=== PATIENT | female | born 1935 | race Caucasian/White ===

== ENCOUNTER 2017-07-01 19:34 | Emergency (ER) | payer OTHER ==
--- OUTSIDE RECORDS SUMMARY | 2017-07-01 19:35 | XMS REPORT | Clinical Summary ---
:1935 Author Organization [facility] Address [address] [place] [address] Care Team Providers Name Role Phone Asked, No Pcp Primary Care Provider Unavailable Allergies Active Allergy Reactions Severity Noted Date Comments Codeine 09/17/2016 Nausea Current Medications Prescription Sig. Disp. Refills Start Date End Date Status atorvastatin Take 80 mg by Active (LIPITOR) 80 MG mouth daily. tablet LISINOPRIL-HCTZ 1 tablet Active 20-12.5 MG COMBO daily. DOSE metFORMIN Take 500 mg by Active (GLUCOPHAGE) 500 mg mouth 2 (two) tablet times a day with meals. aspirin (ECOTRIN) Take 81 mg by Active 81 MG enteric mouth daily. coated tablet minocycline Take 1 capsule 6 capsule 0 09/19/2016 09/19/2016 Discontinued (MINOCIN) 100 MG (100 mg total) capsule by mouth 2 (two) times a day for 3 days. traMADol (ULTRAM) Take 1 tablet 25 tablet 0 09/19/2016 09/19/2016 Discontinued 50 mg tablet (50 mg total) by mouth every 6 (six) hours as needed for moderate pain for up to 5 days. traMADol (ULTRAM) Take 1 tablet 30 tablet 0 09/19/2016 09/24/2016 50 mg tablet (50 mg total) by mouth every 6 (six) hours as needed for moderate pain for up to 5 days. minocycline Take 1 capsule 6 capsule 0 09/19/2016 09/22/2016 (MINOCIN) 100 MG (100 mg total) capsule by mouth 2 (two) times a day for 3 days. Active Problems Problem Noted Date SSS (sick sinus syndrome) 09/17/2016 Encounters Date Type Specialty Care Team Description 09/18/2016 Procedure Pass Procedural Cardiology 09/18/2016 Surgery Procedural Alcides Nguyễn Ep ppi generator Cardiology MD Yuri insertion dual [04203 (CPT)] 09/17/2016 - Hospital Encounter Cardiology Chela Ramirez SSS (sick sinus 09/19/2016 MD syndrome) Ryan Zamorano MD Nguyen, Thuyen T., MD after 06/30/2016 Family History Medical History Relation Name Comments Heart disease Father Dementia Mother Cancer Sister Relation Name Status Comments Father Mother Sister Social History Tobacco Use Types Packs/Day Years Used Date Never Smoker Alcohol Use Drinks/Week oz/Week Comments Yes Social drinker; Once a month Sex Assigned at Date Recorded Not on file Last Filed Vital Signs Vital Sign Reading Time Taken Blood Pressure 115/58 09/19/2016 12:03 PM CDT Pulse 78 09/19/2016 12:03 PM CDT Temperature 36.6 C (97.9 F) 09/19/2016 12:03 PM CDT Respiratory Rate 18 09/19/2016 12:03 PM CDT Oxygen Saturation 93% 09/19/2016 12:03 PM CDT Inhaled Oxygen Concentration - - Weight 49.8 kg (109 lb 12.8 oz) 09/19/2016 5:00 AM CDT Height - - Body Mass Index - - Plan of Treatment Health Maintenance Due Date Last Done Comments ZOSTER VACCINE 1993 PNEUMOCOCCAL POLYSACCHARIDE VACCINE AGE 65 AND OVER 1998 PNEUMOCOCCAL-13 1998 INFLUENZA VACCINE 11/12/2016 Implants Implanted Type Area Literature Teacher Device Expiration Model / Identifier Date Serial / Lot Pacemaker Consultant In Ergonomics And Safety Dr Fitzgerald 2chmbr W/ Is-1 Uni/Bi Conn Advisa - [id number] Cardiac N/ A: MEDTRONIC 02/08/2018 [id number] / Implanted: 09/18/2016 (Quantity not on file) Pacemaker N/A CARDIAC RHYTHM [id number] / Generators DISEASE MGMT [id number] Lead, Pacemaker Bipolar Fix Forming Atrial And Ventricular Steroid Eluting 52 Centimeter Capsure Fix Novus - [id number] Cardiac Pacing N/A: [employer]ON[employer] CRM 06/26/2018 [id number] / Implanted: 09/18/2016 (Quantity not on file) Leads or N/A [employer] [id number] / Electrodes or [id number] Accessories Lead, Bipolar Active Fixation Atrial Steroid Eluting 45 Cm Capsure Fix Novus System - [id number] Cardiac Pacing N/A: [employer] CRM 07/02/2017 [id number] 45 / Implanted: 09/18/2016 (Quantity not on file) Leads or N/A [employer] [id number] / Electrodes or [id number] Accessories Procedures Procedure Name Priority Date/Time Associated Diagnosis Comments EP PPI GENERATOR Routine 09/18/2016 7:08 PM SSS (sick sinus Results for this INSERT DUAL CDT syndrome) procedure are in the results section. after 06/30/2016 Results POC glucose (09/19/2016 12:04 PM)Only the most recent of8 resultswithin the time period is included. Component Value Ref Range POC glucose 210 (H) 65 - 99 mg/dL Comment: Meter ID: [id number] Superintendent Institution: [facility] Specimen Performing Laboratory [facility] DEPARTMENT OF PATHOLOGY AND GENOMIC MEDICINE [address] [place] [address]708 ECG Pre/Post Op-Tomorrow (09/19/2016 8:03 AM)Only the most recent of2 resultswithin the time period is included. Component Value Ref Range Ventricular rate 60 Atrial rate 60 QRSD interval 88 QT interval 426 QTC interval 426 QRS axis 1 14 T wave axis 49 EKG impression Atrial-paced rhythm with prolonged AV conduction-Abnormal ECG-In automated comparison with ECG of 18-SEP-2016 20:20,-Electronic atrial pacemaker has replaced Sinus rhythm- Specimen Performing Laboratory [facility] MUSE [address] [place] [address]809 Thyroid stimulating hormone (09/19/2016 4:00 AM) Component Value Ref Range TSH 8.63 (H) 0.27 - 4.20 uIU/mL Specimen Performing Laboratory Plasma specimen [facility] DEPARTMENT OF PATHOLOGY AND GENOMIC MEDICINE [address] [place] [address] Lipid panel (09/19/2016 4:00 AM) Component Value Ref Range Cholesterol 169 <200 mg/dL Triglycerides 270 (H) <150 mg/dL HDL cholesterol 33 (L) >40 mg/dL LDL cholesterol 101 (H)Comment: Result obtained by direct <100 mg/dL LDL measurement Lipid panel interpretation SeeBelow Comment: Total Cholesterol (mg/dL) <200 Desirable [phone]-ataz >=240High Triglycerides (mg/dL) <150 Normal 321-158Gigddrzjhe-onku 200-499High >=500Very high HDL Cholesterol (mg/dL) <40Low (male) <40Low (female) LDL Cholesterol (mg/dL) <100 Optimal 100-129Near or above optimal [phone]-ohdg 160-189High >=190Very high Risk Catergories that modify LDL goals. Risk CatergoriesLDL goal (mg/dL) CHD and CHD risk equivalent<100 (10-year risk >20%) Multiple (2+) risk factors <130 (10-year risk=<20%) 0-1 risk factors <160 (<10-year risk) Defining levels of lipids in metabolic syndrome Triglycerides>=150 mg/dL HDL Cholesterol Men<40 mg/dL Women<40 mg/dL Non-HDL cholesterol is a second target for therapy in persons with high triglycerides (>=200 mg/dL) Specimen Performing Laboratory Plasma specimen [facility] DEPARTMENT OF PATHOLOGY AND GENOMIC MEDICINE [address] [place] [address]5866 XR Chest 1 Vw Portable (09/18/2016 10:05 PM) Specimen Performing Laboratory [facility] [address] [place] [address]45 Narrative EXAMINATION:XR CHEST 1 VW PORTABLE CLINICAL HISTORY:Pneumothorax COMPARISON:None IMPRESSION: 1.Cardiac regulating device is present. There is no pneumothorax. 2.Heart size within normal limits. Vessels are not congested. [facility]-[id number] Procedure Note Interface, Radiology Results Incoming - 09/18/2016 10:14 PM CDT EXAMINATION: XR CHEST 1 VW PORTABLE CLINICAL HISTORY: Pneumothorax COMPARISON: None IMPRESSION: 1. Cardiac regulating device is present. There is no pneumothorax. 2. Heart size within normal limits. Vessels are not congested. [facility]-[id number] Cv electrophysiology procedure (09/18/2016 7:08 PM) Specimen Performing Laboratory [facility] [id number] [place] [address] Narrative COMPLICATIONS: None. ESTIMATED BLOOD LOSS: 10 mL. SPECIMEN REMOVED: None. PROCEDURES PERFORMED: 1.Dual chamber pacemaker implantation. 2.Ultrasound-guided vascular access. PREOPERATIVE DIAGNOSES: 1.Sick sinus syndrome. 2.Presyncope/syncope. POSTOPERATIVE DIAGNOSES: 1.Sick sinus syndrome. 2.Presyncope/syncope. HISTORY OF PRESENT ILLNESS: The patient is an 81-year-old female who presents with presyncope and syncope and documented sinus pauses of greater than 3.5 seconds.She was on no negative dromotropic agents and she is referred pacemaker implantation. PROCEDURE IN DETAIL: The patient was brought to the EP lab in a fasting and nonsedated state. Informed consent was obtained.The patient was prepped and draped in the usual sterile fashion.Lidocaine 1% was administered in left upper chest. Ultrasound-guided vascular access was obtained percutaneously.A 4 cm incision was made.Using cautery and blunt dissection, percutaneous pocket was created, guidewires were exchanged for intravascular sheath through which RV lead was advanced and positioned in the RV septum.Right ventricular lead was advanced and positioned in the right atrial appendage.Sheath was peeled.Leads were sutured.Prepectoral fascia pocket was irrigated.Adequate hemostasis was achieved.Leads were connected.The pulse generator was then placed in pocket and sutured to the pocket floor.Pocket was closed using 2-0 Vicryl in 3 layers followed by Dermabond with Prineo and Aquacel dressing.The patient tolerated the procedure well with no hemodynamic, neurologic, or respiratory sequelae. FINDINGS: The patient has a Medtronic device model #A2DR01, serial #[id number]. Atrial lead is a Medtronic lead model #5076-45, serial #[id number].RV lead is a Medtronic lead, model #5076-52, serial #[id number].Measurements demonstrated P-wave is at 3.8 millivolts, pacing threshold 0.4 volts at 0.5 milliseconds, pacing impedance ohms.R-waves of 6.8 millivolts, pacing threshold is 0.3 volts at 0.5 milliseconds, pacing impedance of 1305 ohms.The patient was programmed to DDDR, lower rate limit of 60, upper rate limit of 130 with normal paced sensed AV intervals to promote intrinsic AV conduction. CONCLUSION: Successful dual-chamber pacemaker implantation. RECOMMENDATIONS: The patient will complete the appropriate postprocedural wound care and activity restrictions. Estimated GFR (09/18/2016 5:00 AM)Only the most recent of2 resultswithin the time period is included. Component Value Ref Range GFR Non Af Amer 68 mL/min/1.73 m2 GFR Af Amer 83 mL/min/1.73 m2 Comment: Chronic kidney disease: <60 mL/min/1.73m2 Kidney failure: <15 mL/min/1.73m2 The estimated GFR is calculated from the IDMS-traceable Modification of Diet in Renal Disease Equation. The accuracy of the calculation is poor when the creatinine is normal. Calculated values >90 mL/min/1.73m2 are not reported. This equation has not been validated in children (<18 years), women, the elderly (>70 years), or ethnic groups other than Caucasians and Americans. Specimen Performing Laboratory Plasma specimen [facility] DEPARTMENT OF PATHOLOGY AND GENOMIC MEDICINE [address] [place] [address]503 CBC with platelet and differential (09/18/2016 5:00 AM)Only the most recent of2 resultswithin the time period is included. Component Value Ref Range WBC 4.89 4.50 - 11.00 k/uL RBC 4.51 4.20 - 5.50 m/uL HGB 13.2 12.0 - 16.0 g/dL HCT 39.5 37.0 - 47.0 % MCV 87.6 82.0 - 100.0 fL MCH 29.3 27.0 - 34.0 pg MCHC 33.4 31.0 - 37.0 g/dL RDW - SD 41.9 37.0 - 55.0 fL MPV 9.9 8.8 - 13.2 fL Platelet count 231 150 - 400 k/uL Nucleated RBC 0.00 /100 WBC Neutrophils 41.5 39.0 - 69.0 % Lymphocytes 43.4 25.0 - 45.0 % Monocytes 8.6 0.0 - 10.0 % Eosinophils 5.3 (H) 0.0 - 5.0 % Basophils 1.0 0.0 - 1.0 % Immature granulocytes 0.2Comment: "Immature granulocytes" 0.0 - 1.0 % (promyelocytes, myelocytes, metamyelocytes) Specimen Performing Laboratory Blood [facility] DEPARTMENT OF PATHOLOGY AND GENOMIC MEDICINE [address] [place] [address]5480 Basic metabolic panel (09/18/2016 5:00 AM) Component Value Ref Range Sodium 143 135 - 148 mEq/L Potassium 4.5 3.5 - 5.0 mEq/L Chloride 102 98 - 112 mEq/L CO2 25 24 - 31 mEq/L Anion gap 16 (H) 7 - 15 mEq/L Comment: Starting from July , anion gap calculation no longer incorporates potassium. Please note the change. BUN 20 8 - 23 mg/dL Creatinine 0.8 0.5 - 0.9 mg/dL Glucose 130 (H) 65 - 99 mg/dL Calcium 9.3 8.8 - 10.2 mg/dL Specimen Performing Laboratory Plasma specimen [facility] DEPARTMENT OF PATHOLOGY AND [facility] [address] [place] [address]206 Partial thromboplastin time, activated (09/17/2016 10:30 PM) Component Value Ref Range PTT 35.5 23.0 - 36.0 sec Comment: PTT therapeutic range for unfractionated heparin is 61.0-112.0 seconds which corresponds to Anti-Xa 0.3-0.7 U/ml. Specimen Performing Laboratory Blood [facility]PART[facility] OF PATHOLOGY AND [facility] [address] [place] [address]123 Prothrombin time with INR (09/17/2016 10:30 PM) Component Value Ref Range Prothrombin time 13.3 12.0 - 15.0 sec INR 1.0 Comment: The International Normalized Ratio (INR) is a therapeutic monitoring tool for patients who are stable on oral anticoagulant therapy. An INR of 2.0-3.0 is suggested for deep vein thrombosis/pulmonary embolism. Specimen Performing Laboratory Blood [facility] DEPARTMENT OF PATHOLOGY AND [facility] [address] [place] [address] 02079 B natriuretic peptide (09/17/2016 10:30 PM) Component Value Ref Range BNP 13 0 - 100 pg/mL Specimen Performing Laboratory Blood [facility] DEPARTMENT OF PATHOLOGY AND [facility] [address] [place] [address] 91675 Hemoglobin A1c (09/17/2016 10:30 PM) Component Value Ref Range Hemoglobin A1C 6.8 (H) 4.0 - 5.6 % Comment: HbA1c cutoffs for diagnosing diabetes: 4.0% - 5.6%=normal 5.7% - 6.4%=increased risk for diabetes (prediabetes) >=6.5%=diabetes Goals for glycemic control (ADA 2016) < 7.0%Target for non adults with diabetes. More or less stringent targets may be appropriate for individual patients. <7.5% Target for Children and adolescents with type 1 diabetes. Specimen Performing Laboratory Blood [facility] DEPARTMENT OF PATHOLOGY AND [facility] [address] [place] [address]335 ECG 12 lead (09/17/2016 9:40 PM) Component Value Ref Range Ventricular rate 67 Atrial rate 67 NE interval 220 QRSD interval 86 QT interval 372 QTC interval 393 P axis 1 23 QRS axis 1 -12 T wave axis 7 EKG impression Sinus rhythm with 1st degree AV block-Inferior infarct , age undetermined-Abnormal ECG-No previous ECGs available- Specimen Performing Laboratory [facility] [address] [place] [address] Comprehensive metabolic panel (09/17/2016 8:55 PM) Component Value Ref Range Sodium 139 135 - 148 mEq/L Potassium 4.3 3.5 - 5.0 mEq/L Chloride 101 98 - 112 mEq/L CO2 23 (L) 24 - 31 mEq/L Anion gap 15 7 - 15 mEq/L Comment: Starting from July , anion gap calculation no longer incorporates potassium. Please note the change. BUN 20 8 - 23 mg/dL Creatinine 0.8 0.5 - 0.9 mg/dL Glucose 152 (H) 65 - 99 mg/dL Calcium 9.1 8.8 - 10.2 mg/dL Protein 6.5 6.3 - 8.3 g/dL Comment: 4.6-7.0 g/dL 1 week 4.4-7.6 g/dL 7 months-1year5.1-7.3 g/dL 1-2 years5.6-7.5 g/dL >3 years6.0-8.0 g/dL 18-150 6.3-8.3 g/dL Albumin 3.5 3.5 - 5.0 g/dL A/G ratio 1.2 0.7 - 3.8 Alkaline phosphatase 68 35 - 104 U/L AST 15 10 - 35 U/L ALT 14 5 - 50 U/L Total bilirubin <0.2 0.0 - 1.2 mg/dL Specimen Performing Laboratory Plasma specimen [facility] DEPARTMENT OF PATHOLOGY AND GENOMIC MEDICINE [address] [place], [place] [address] [place] [address] after 06/30/2016 Insurance Payer Benefit Plan / Group Subscriber ID Type Phone Address MEDICARE MEDICARE PART A AND B xxxxxxxxxx Medicare [place], [place] Home: [address] [facility] [phone] [address]
[2017-07-01] MEDS ORDERED: MEPERIDINE HCL 25 MG/0.5 ML ONE (20:34)
--- NOTE | 2017-07-01 21:02 | RAD REPORT ---
EXAM DESCRIPTION: RAD - Shoulder Right 2 View - 07/01/2017 8:32 pm CLINICAL HISTORY: Right shoulder pain status post fall FINDINGS: A moderately displaced fracture involves the right humeral neck. An anterior dislocation i s seen.
[2017-07-01] MEDS ORDERED: PROPOFOL 200 MG/20 ML VIAL IV ONE (21:28)
[2017-07-01] MEDS ORDERED: NA CHLORIDE 0.9% 500 ML ONE (21:29)
--- NOTE | 2017-07-01 22:05 | EDPHYS ---
Physician Documentation [facility] Name: Mary Figueroa Age: 82 yrs Sex: Female : 1935 Arrival Date: 07/01/2017 Time: 19:51 Bed 24 Private MD: ED Physician Tip Figueroa HPI: 07/01 20:45 This 82 yrs old Female presents to ER via EMS with complaints of Shoulder rn Injury. 20:45 The patient or guardian complains of an injury, pain. right shoulder. Onset: The rn symptoms/episode began/occurred just prior to arrival. Modifying factors: the symptoms are alleviated by nothing. The symptoms are aggravated by movement, rotation of arm. 20:46 Severity of symptoms: At their worst the symptoms were moderate, in the emergency rn department the symptoms are unchanged. The patient has not experienced similar symptoms in the past. The patient has not recently seen a physician. Pt fell while on sidewalk, landed on right shoulder, unable to move shoulder, no head injury, no LOC, remembers all events. . Historical: - Allergies: 20:22 Codeine; kr2 - Home Meds: 20:22 aspirin 81 mg Oral chew [Active]; Lipitor 80 mg Oral tab [Active]; lisinopril 20 mg kr2 Oral tab 1 tab once daily [Active]; metformin 500 mg Oral Tb24 [Active]; - PMHx: 20:22 Hypertension; Hyperlipidemia; Diabetes - NIDDM; kr2 - PSHx: 20:22 Hysterectomy; kr2 - Immunization history:: Adult Immunizations unknown. - Social history:: Smoking status: Patient/guardian denies using tobacco. - Family history:: not pertinent. - Hospitalizations: : No recent hospitalization is reported. ROS: 20:46 Constitutional: Negative for fever, chills, and weight loss, Eyes: Negative for injury, rn pain, redness, and discharge, Neck: Negative for injury, pain, and swelling, Cardiovascular: Negative for chest pain, palpitations, and edema, Respiratory: Negative for shortness of breath, cough, wheezing, and pleuritic chest pain, Abdomen/GI: Negative for abdominal pain, nausea, vomiting, diarrhea, and constipation, Back: Negative for injury and pain, MS/Extremity: + right shoulder injury and deformity Neuro: Negative for headache, weakness, numbness, tingling, and seizure. Exam: 21:07 Constitutional: This is a well developed, well nourished patient who is awake, alert, rn appears in pain Head/Face: Normocephalic, atraumatic. Eyes: Pupils equal round and reactive to light, extra-ocular motions intact. Lids and lashes normal. Conjunctiva and sclera are non-icteric and not injected. Cornea within normal limits. Periorbital areas with no swelling, redness, or edema. Neck: Trachea midline, no thyromegaly or masses palpated, and no cervical lymphadenopathy. Supple, full range of motion without nuchal rigidity, or vertebral point tenderness. No Meningismus. Cardiovascular: Regular rate and rhythm with a normal S1 and S2. No gallops, murmurs, or rubs. Normal PMI, no JVD. No pulse deficits. Respiratory: Lungs have equal breath sounds bilaterally, clear to auscultation and percussion. No rales, rhonchi or wheezes noted. No increased work of breathing, no retractions or nasal flaring. Abdomen/GI: Soft, non-tender, with normal bowel sounds. No distension or tympany. No guarding or rebound. No evidence of tenderness throughout. Back: No spinal tenderness. No costovertebral tenderness. Full range of motion. MS/ Extremity: Pulses equal, no cyanosis. Neurovascular intact. + tenderness proximal left humerus. Vital Signs: 19:53 BP 145 / 112; Pulse 61; Resp 17; Temp 98.7; Pulse Ox 100% ; Weight 49.9 kg; Height 4 tl1 ft. 11 in. (149.86 cm); Pain 10/10; 20:32 BP 165 / 85; Pulse 59; Resp 16; Pulse Ox 99% on R/A; kr2 21:20 BP 182 / 84; Pulse 65; Resp 16; Pulse Ox 96% on R/A; kr2 21:25 BP 173 / 81; Pulse 62; Resp 16; Pulse Ox 97% on 2 lpm NC; kr2 21:30 BP 125 / 83; Pulse 63; Resp 15; Pulse Ox 96% on 2 lpm NC; kr2 21:35 BP 143 / 63; Pulse 67; Resp 16; Pulse Ox 96% on R/A; kr2 21:50 BP 151 / 65; Pulse 62; Resp 15; Pulse Ox 99% on R/A; kr2 22:05 BP 143 / 65; Pulse 65; Resp 17; Temp 98.1; Pulse Ox 99% on R/A; kr2 19:53 Body Mass Index 22.22 (49.90 kg, 149.86 cm) tl1 21:25 intra-procedure kr2 21:30 intra-procedure kr2 21:35 post procedure kr2 Procedures: 21:47 Reduction: of the right shoulder, using traction, manipulation, Immobilized with rn shoulder immobilizer. Patient tolerated well. Post reduction film - reveals improved alignment. Moderate sedation: Pre-procedure assessment: the patient has been NPO 3 hour(s) prior to arrival, ASA physical classification: II - mild/mod systemic disease that does not interfere with daily routines, Airway assessment: able to hyperextend neck, able to maintain airway, can open mouth without difficulty, Monitoring during procedure: manager cardiac cath, continuous pulse oximetry, nurse at bedside at all times, Medications employed: propofol, Post-procedure assessment: the patient is not sedated, Respiratory status: even and unlabored, a reversal agent was not used. MDM: 20:11 Patient medically screened. rn 21:48 Differential diagnosis: Anterior dislocation with fracture. Data reviewed: vital signs, rn nurses notes, radiologic studies, plain films. Counseling: I had a detailed discussion with the patient and/or guardian regarding: the historical points, exam findings, and any diagnostic results supporting the discharge/admit diagnosis, radiology results. ED course: Consulted with Dr. Akers regarding fracture/dislocation of right humerus, states to attempt reduction, if able to reduce, ok to dc home, if unable to reduce, will admit and fix in OR tomorrow. . 22:00 Response to treatment: the patient's symptoms have markedly improved after treatment, rn and as a result, I will discharge patient. 07/01 20:11 Order name: XRAY Shoulder RIGHT 2 view kr2 07/01 21:02 Order name: RAD; Complete Time: 21:35 EDMS 07/01 21:35 Order name: XRAY Shoulder (1 View) [id number] 07/01 20:46 Order name: IV Start; Complete Time: 20:50 rn Administered Medications: 20:17 Drug: Demerol 25 mg Route: IM; Site: right gluteus; kr2 20:50 Follow up: Response: No adverse reaction; Pain is decreased kr2 21:27 Drug: Propofol 50 mg {Note: Propofol 30mg given at 2124, Propofol 20mg given at 2126.} kr2 Route: IVP; Site: left antecubital; 22:21 Follow up: Response: No adverse reaction kr2 22:12 Drug: Zofran 4 mg Route: IVP; Site: left antecubital; kr2 22:22 Follow up: Response: Medication administered at discharge. kr2 22:15 Drug: [place] 10 mg-325 mg 1 tabs Route: PO; kr2 22:22 Follow up: Response: Medication administered at discharge. kr2 Disposition: 07/01/17 22:04 Discharged to Home. Impression: Other dislocation of right shoulder joint, Comminuted fracture of shaft of humerus. - Condition is Stable. - Discharge Instructions: Shoulder Dislocation, Shoulder Fracture. - Prescriptions for Ibuprofen 600 mg Oral Tablet - take 1 tablet by ORAL route every 8 hours As needed take with food; 15 tablet. Tylenol- Codeine #3 300-30 mg Oral Tablet - take 1 tablet by ORAL route every 6 hours As needed; 20 tablet. Zofran ODT 4 mg Oral tablet,disintegrating - place 1 tablet by TRANSLINGUAL route every 8-10 hours As needed; 20 tablet. - Medication Reconciliation Form, Thank You Letter, Antibiotic Education, Prescription Opioid Use form. - Follow up: Guillermo Akers MD; When: 2 - 3 days; Reason: Recheck today's complaints, Re-evaluation by your physician. - Problem is new. - Symptoms have improved. Signatures: Dispatcher [employer] EDMS Tip Figueroa MD MD rn Roszak, Josh, PA PA [id number] Greer Gonzalez RN RN kr2 Corrections: (The following items were deleted from the chart) 20:48 20:46 Constitutional: Negative for fever, chills, and weight loss, Eyes: Negative for rn injury, pain, redness, and discharge, Cardiovascular: Negative for chest pain, palpitations, and edema, Respiratory: Negative for shortness of breath, cough, wheezing, and pleuritic chest pain, Abdomen/GI: Negative for abdominal pain, nausea, vomiting, diarrhea, and constipation, Back: Negative for injury and pain, MS/Extremity: + right shoulder injury and deformity Neuro: Negative for headache, weakness, numbness, tingling, and seizure, rn
--- NOTE | 2017-07-01 22:05 | ER ---
Nurse's Notes [facility] Name: Mary Figueroa Age: 82 yrs Sex: Female : 1935 Arrival Date: 07/01/2017 Time: 19:51 Bed 24 Private MD: Diagnosis: Other dislocation of right shoulder joint;Comminuted fracture of shaft of humerus Presentation: 07/01 19:52 Presenting complaint: EMS states: She was standing on a small incline ramp at her house tl1 and lost footing and fell landing on her right shoulder. Transition of care: patient was not received from another setting of care. Onset of symptoms was July 01, 2017. Care prior to arrival: Medication(s) given: fentanyl. 19:52 Method Of Arrival: EMS: [facility] tl1 19:52 Acuity: YUSUF 3 tl1 Triage Assessment: 20:18 General: Appears in no apparent distress. uncomfortable, well groomed, well developed, kr2 well nourished, Behavior is cooperative, agitated, anxious. Pain: Complains of pain in right shoulder Pain radiates to right arm Pain currently is 10 out of 10 on a pain scale. Quality of pain is described as aching, tender, Pain began suddenly, Is continuous, Alleviated by rest, Aggravated by repositioning, Noted to be agitated, grimacing, resistant to movement. EENT: Nares are clear Oral mucosa is moist. Neuro: Level of Consciousness is awake, alert, obeys commands, Oriented to person, place, time, situation, Appropriate for age. Cardiovascular: Capillary refill < 3 seconds in bilateral fingers Patient's skin is warm and dry. Respiratory: Airway is patent Respiratory effort is even, unlabored, Respiratory pattern is regular, symmetrical. GI: Abdomen is flat, non-distended. : No signs and/or symptoms were reported regarding the genitourinary system. Derm: Skin is intact, is fragile, Skin is pink, warm \T\ dry. Musculoskeletal: Range of motion: limited in right shoulder Bony deformity noted of right shoulder. Injury Description: fall resulting in pain and deformity to right shoulder. Historical: - Allergies: 20:22 Codeine; kr2 - Home Meds: 20:22 aspirin 81 mg Oral chew [Active]; Lipitor 80 mg Oral tab [Active]; lisinopril 20 mg kr2 Oral tab 1 tab once daily [Active]; metformin 500 mg Oral Tb24 [Active]; - PMHx: 20:22 Hypertension; Hyperlipidemia; Diabetes - NIDDM; kr2 - PSHx: 20:22 Hysterectomy; kr2 - Immunization history:: Adult Immunizations unknown. - Social history:: Smoking status: Patient/guardian denies using tobacco. - Family history:: not pertinent. - Hospitalizations: : No recent hospitalization is reported. Screenin:18 Abuse screen: Denies threats or abuse. Denies injuries from another. Nutritional kr2 screening: No deficits noted. Tuberculosis screening: No symptoms or risk factors identified. Fall Risk None identified. Assessment: 20:31 Reassessment: See triage assessment. kr2 21:15 Reassessment: Consent for signed for conscious sedation for closed reduction of right kr2 shoulder dislocation. Patient denies further questions. Crash cart in place, suction set up, patient on cardiac, O2 and blood pressure monitors. Supplemental O2 applied. Medication prepared as ordered. 21:25 Reassessment: Procedure started and performed by Dr. Figueroa. kr2 21:30 Reassessment: Procedure completed, patient tolerated well, see procedure sheet kr2 documentation on chart. Reassessment: Patient appears in no apparent distress at this time. 22:00 Reassessment: Patient appears in no apparent distress at this time. Patient and/or kr2 family updated on plan of care and expected duration. Pain level reassessed. Patient is alert, oriented x 3, equal unlabored respirations, skin warm/dry/pink. Patient states feeling better. Patient states symptoms have improved. Vital Signs: 19:53 BP 145 / 112; Pulse 61; Resp 17; Temp 98.7; Pulse Ox 100% ; Weight 49.9 kg; Height 4 tl1 ft. 11 in. (149.86 cm); Pain 10/10; 20:32 BP 165 / 85; Pulse 59; Resp 16; Pulse Ox 99% on R/A; kr2 21:20 BP 182 / 84; Pulse 65; Resp 16; Pulse Ox 96% on R/A; kr2 21:25 BP 173 / 81; Pulse 62; Resp 16; Pulse Ox 97% on 2 lpm NC; kr2 21:30 BP 125 / 83; Pulse 63; Resp 15; Pulse Ox 96% on 2 lpm NC; kr2 21:35 BP 143 / 63; Pulse 67; Resp 16; Pulse Ox 96% on R/A; kr2 21:50 BP 151 / 65; Pulse 62; Resp 15; Pulse Ox 99% on R/A; kr2 22:05 BP 143 / 65; Pulse 65; Resp 17; Temp 98.1; Pulse Ox 99% on R/A; kr2 19:53 Body Mass Index 22.22 (49.90 kg, 149.86 cm) tl1 21:25 intra-procedure kr2 21:30 intra-procedure kr2 21:35 post procedure kr2 ED Course: 19:51 Patient arrived in ED. tl1 19:53 Triage completed. tl1 19:54 Greer Gonzalez, NICHOL is Primary Nurse. kr2 19:54 Arm band placed on right wrist. tl1 20:11 Tip Figueroa MD is Attending Physician. rn 20:22 Patient has correct armband on for positive identification. Bed in low position. Call kr2 light in reach. Side rails up X2. Pulse ox on. NIBP on. Noise minimized. Lights dimmed. Warm blanket given. 20:27 X-ray completed. Portable x-ray completed in exam room. Patient tolerated procedure kc2 well. 21:00 Inserted saline lock: 22 gauge in left antecubital area, using aseptic technique. kr2 ,using aseptic technique. Performed by NICHOL Monzon. 21:25 Assist provider with reduction of right shoulder using manipulation, Set up for kr2 procedure. Performed by Tip Figueroa MD Immobilized with shoulder immobilizer Patient tolerated well. 22:03 Guillermo Akers MD is Referral Physician. rn 22:15 IV discontinued, intact, bleeding controlled, No redness/swelling at site. Pressure kr2 dressing applied. Administered Medications: 20:17 Drug: Demerol 25 mg Route: IM; Site: right gluteus; kr2 20:50 Follow up: Response: No adverse reaction; Pain is decreased kr2 21:27 Drug: Propofol 50 mg {Note: Propofol 30mg given at 2125, Propofol 20mg given at 2127.} kr2 Route: IVP; Site: left antecubital; 22:21 Follow up: Response: No adverse reaction kr2 22:12 Drug: Zofran 4 mg Route: IVP; Site: left antecubital; kr2 22:22 Follow up: Response: Medication administered at discharge. kr2 22:15 Drug: [place] 10 mg-325 mg 1 tabs Route: PO; kr2 22:22 Follow up: Response: Medication administered at discharge. kr2 Outcome: 22:04 Discharge ordered by . rn 22:22 Patient left the ED. kr2 23:08 Discharged to home via wheelchair, with family. kr2 23:08 Condition: good 23:08 Discharge instructions given to patient, family, Instructed on discharge instructions, follow up and referral plans. medication usage, Demonstrated understanding of instructions, follow-up care, medications, Prescriptions given X 3. Signatures: Tip Figueroa MD MD rn Lasagna, Tonya RN RN tl1 Carin Hebert2 Greer Gonzalez RN RN kr2
[2017-07-01] MEDS ORDERED: ONDANSETRON 4 MG/2 ML VIAL ONE (22:25)
[2017-07-01] MEDS ORDERED: HYDROCODONE/APAP 10/325 TAB ONE (22:25)
[2017-07-01 22:27] VITALS: TEMP 98.7
[2017-07-01 22:28] VITALS: BP 165/85; O2SAT 99
--- NOTE | 2017-07-02 09:32 | RAD REPORT ---
EXAM DESCRIPTION: RAD - Shoulder 1 View - 07/01/2017 10:06 pm CLINICAL HISTORY: Right shoulder pain FINDINGS: The previously described dislocation has been reduced. Humeral fracture is again demonstra meghan
== END 2017-07-01 22:22 | disposition home or self-care (01) ==
LOC: ER 19:34
PROC: 0RSJXZZ Reposition Right Shoulder Joint, External Approach (ICD-10-PCS; principal; 2017-07-01)
DX: S43.084A Other dislocation of right shoulder joint, initial encounter (principal); S42.351A Displaced comminuted fracture of shaft of humerus, right arm, initial encounter for closed fracture; W10.1XXA Fall (on)(from) sidewalk curb, initial encounter; Y93.01 Activity, walking, marching and hiking; Y92.89 Other specified places as the place of occurrence of the external cause; Z79.82 Long term (current) use of aspirin; Z88.5 Allergy status to narcotic agent; I10 Essential (primary) hypertension; E11.9 Type 2 diabetes mellitus without complications; E78.5 Hyperlipidemia, unspecified
CPT/HCPCS: 23655; 73020; 73030; 96372; 96374; 96375; 99285; J2175; J2405